=== PATIENT | female | born 1990 ===

== ENCOUNTER 2024-08-01 12:40 | Emergency (ER) | payer OTHER ==
[~2024-08-01] VITALS: Ht 180.3 cm; Wt 69.5 kg
[2024-08-01 12:58] VITALS: BP 95/56; PULSE 89; RESP 16; TEMP 98; O2SAT 98
[2024-08-01 13:09] LABS: COVID AG,FIA SOURCE NASAL SWAB
[2024-08-01 13:27] LABS: INFLUENZA TYPE A NEGATIVE FOR TYPE A (NEGATIVE); INFLUENZA TYPE B NEGATIVE FOR TYPE B (NEGATIVE); SARS-COV2 (COVID) ANTIGEN,FIA Negative (Negative)
[2024-08-01] MEDS: AZITHROMYCIN 500 MG TABLET PO ONE (14:45)
[2024-08-01] MEDS: ALBUTEROL SULFATE HFA 90 MCG/PUFF 8 GM INHALER IH ONE (14:45)
[2024-08-01] MEDS: PredniSONE 20 MG TABLET PO ONE (14:45)
[2024-08-01] MEDS ORDERED: ACET-3385 PO (14:52)
[2024-08-01] MEDS ORDERED: IBUP-1492 PO (14:52)
[2024-08-01] MEDS ORDERED: PRED-554 PO (14:52)
[2024-08-01] MEDS ORDERED: AZIT-164 PO (14:52)
== END 2024-08-01 15:03 | disposition home or self-care (01) ==
LOC: EMS 12:45
DX: J40 Bronchitis, not specified as acute or chronic (principal); F17.210 Nicotine dependence, cigarettes, uncomplicated; Z20.822 Contact with and (suspected) exposure to COVID-19
CPT/HCPCS: 99283; 87426; 87804; 94640; J0456; J7512; J3535